=== PATIENT | female | born 1990 | race Caucasian/White ===

== ENCOUNTER 2018-04-06 11:53 | Emergency (ER) | payer OTHER ==
[2018-04-06] MEDS ORDERED: ALBUTEROL SULFATE 2.5 MG/3 ML AMPUL.NEB NEB ONE (12:33)
--- NOTE | 2018-04-06 12:38 | ED Physician Documentation ---
Upper Respiratory Symptoms - HISTORIAN Historian: patient - HPI Stated Complaint: cough Chief Complaint: Upper Respiratory Symptoms Onset: days ago (30) Duration: intermittent episodes Context: denies: recent foreign travel, insect bite(s), recent chemotherapy Severity: moderate Associated Symptoms: sinus pain, sinus drainage, productive cough, other (wheezing) Further Comments: yes (28 year old female patient presents with complaints of cough, sinus drainage, and wheezing. States she has used her inhaler multiple times with no improvment. Reports "sinus problems" since breaking her nose this summer.) - ROS CONST/EYES: denies: weakness CVS/RESP: none LYMPH: denies: leg swelling, rash, swollen glands, ankle swelling, other GI/: none NEURO/PSYCH: denies: fainting, dizziness, confusion, anxiety, depression, other MS/SKIN: denies: joint pain, muscle aches, rash, other - PAST HX Lung Disease: asthma Allergies/Adverse Reactions: Allergies Allergy/AdvReac Type Severity Reaction Status Date / Time fluoxetine [From Prozac] Allergy Verified 04/06/18 12:26 Home Medications: Ambulatory Orders Medication Instructions Recorded Albuterol Sulfate [Proair HFA] 1 inh IH PRN 04/06/18 Albuterol Sulfate [Proair HFA] 1 inh IH Q4H PRN #1 hfa.aer.ad 04/06/18 Alprazolam [Xanax] mg PO 04/06/18 Azithromycin [Zithromax] 250 mg PO DAILY #6 tablet 04/06/18 Methylprednisolone [Medrol] 4 mg PO DAILY #1 tab.ds.pk 04/06/18 Sertraline HCl 100 mg PO QDAY 04/06/18 - SOCIAL HX Smoking History: non-smoker - FAMILY HX Family History: denies: none - VITAL SIGNS Vital Signs: Vital Signs Temp Pulse Resp BP Pulse Ox 97.0 F L 75 16 132/80 97 04/06/18 11:58 04/06/18 11:58 04/06/18 11:58 04/06/18 11:58 04/06/18 11:58 - REVIEWED ASSESSMENTS Nursing Assessment Reviewed: Yes Vitals Reviewed: Yes ED Results Lab/Radiology - Orders Orders: ED Orders Category Date Time Status INFLUENZA A&B Stat Lab 04/06/18 12:02 Uncollected Albuterol Sulfate [Ventolin Soln] Med 04/06/18 12:33 Once 2.5 mg NEB NOW ONE Upper Respiratory Symptoms - EXAM General Appearance: mild distress EENT: eyes nml inspection, lids & conjunct. nml, PERRL, ear nml, pain over sinuses, frontal, maxillary, ethmoid, nose nml, pharynx nml, airway nml Respiratory: no resp. distress, no pain on inspiration, speaks full sentences, wheezes (expiratory), no pleuritic chest pain CVS: reg rate & rhythm, heart sounds normal, equal pulses, no murmur, no gallop, PMI nml, no JVD, no friction rub, 24 Skin: color nml, no rash, warm,dry Extremities: non-tender, normal range of motion, no evidence of injury, no edema, J, [employer]FORMATION [employer]CTOR Neuro/Psych: oriented x3, neuro intact, mood/affect nml, CN's nml as tested Discharge Clincal Impression: Asthma exacerbation Qualifiers: Asthma severity: mild Asthma persistence: intermittent Qualified Code(s): J45.21 - Mild intermittent asthma with (acute) exacerbation Sinusitis Qualifiers: Sinusitis location: pansinusitis Chronicity: acute Recurrence: non-recurrent Qualified Code(s): J01.40 - Acute pansinusitis, unspecified Prescriptions: Albuterol Sulfate [Proair HFA] 1 inh IH Q4H PRN #1 hfa.aer.ad PRN Reason: Wheezing Azithromycin [Zithromax] 250 mg PO DAILY #6 tablet Methylprednisolone [Medrol] 4 mg PO DAILY #1 tab.ds.pk Referrals: Primary Doctor,No [Primary Care Provider] - 2 Days Additional Instructions: maple products supervisor your prescriptions and start it today. maple products supervisor an over the counter decongestant such as pseudoped, dayquil and Nyquil at your pharmacy. Treat your symptoms with over the counter medication. You may want to try Vicks rub on your chest and/or feet Cough drops as needed for cough and sore throat. Increase your fluid intake juices, hot tea, non-caffeinated beverages Use a humidifier in the room where you sleep. You can also sit in a steam filled bathroom 1-2 times a day. Tylenol or Ibuprofen as needed for fever, pain and body aches. Start daily allergy medication such as Claritin, Karina or Zyrtec. Start a daily nasal spray such as Flonase or Nasonex You may benefit from the use of a netti pot follow package instructions. See your primary care doctor after you have completed your antibiotic if you symptoms have not resolved. Many times it takes multiple rounds of antibiotics to resolve a sinus infection. Condition: Stable Disposition: 01 HOME, SELF-CARE Decision to Admit: NO Decision Time: 12:37
[2018-04-06 13:19] VITALS: BP 126/74
== END 2018-04-06 13:15 | disposition home or self-care (01) ==
LOC: ED 11:53
DX: J45.21 Mild intermittent asthma with (acute) exacerbation (principal); J01.40 Acute pansinusitis, unspecified
CPT/HCPCS: 87400; 94640; 94760; 99283